=== PATIENT | female | born 1990 | race African-American/Black ===

== ENCOUNTER 2019-04-24 13:13 | Emergency (ER) | payer OTHER ==
[~2019-04-24] VITALS: Ht 175.3 cm; Wt 149.2 kg
[2019-04-24 14:17] LABS: HEMOGLOBIN 10.7 gm/dL (12.0-15.0); MCH 20.3 pg (26.0-34.0); MCHC 30.5 g/dL (28.0-37.0); MCV 66.4 fL (80.0-100.0); PLATELET COUNT 329 thou/uL (150-400); RBC 5.27 mil/uL (4.20-5.00); RDW 20.1 % (10.5-14.5); WBC 9.3 thou/uL (4.0-11.0)
[2019-04-24 14:25] LABS: ANION GAP 9 mmol/L (7-16); BUN 4 mg/dL (7-18); CALCIUM 9.7 mg/dL (8.5-10.1); CHLORIDE 102 mmol/L (98-107); CO2 29 mmol/L (21-32); CREATININE 0.8 mg/dL (0.6-1.0); GLUCOSE 131 mg/dL (74-106); POTASSIUM 3.6 mmol/L (3.5-5.1); SODIUM 140 mmol/L (136-145)
[2019-04-24 14:34] LABS: ALBUMIN 3.8 g/dL (3.4-5.0); SGOT 20 U/L (15-37); SGPT 38 U/L (30-65); TOTAL BILIRUBIN 0.6 mg/dL (<0.1-1.0); TOTAL PROTEIN 8.7 g/dL (6.4-8.2); TROPONIN-I <0.06 ng/mL (<0.06)
[2019-04-24] MEDS ORDERED: AMOXICILLIN875 MG PO (15:01)
[2019-04-24] MEDS ORDERED: PROMETH-CODEIN 65 ML PO (15:01)
[2019-04-24] MEDS ORDERED: ZPAK PO (15:01)
[2019-04-24 15:28] LABS: URINE BILIRUBIN NEGATIVE (Negative); URINE BLOOD NEGATIVE (Negative); URINE CLARITY CLEAR; URINE COLOR YELLOW; URINE GLUCOSE-RANDOM* NEGATIVE (Negative); URINE KETONES NEGATIVE (Negative); URINE LEUKOCYTES-REFLEX NEGATIVE (Negative); URINE NITRITE-REFLEX NEGATIVE (Negative); URINE PROTEIN (DIPSTICK) NEGATIVE (Negative); URINE UROBILINOGEN 0.2 E.U./dl (0.2-1.0)
[2019-04-24 15:33] LABS: AMP/METHAMP Negative (Negative); BARBITURATES Negative (Negative); BENZODIAZEPINES Negative (Negative); COCAINE Negative (Negative); METHADONE Negative (Negative); OPIATES Negative (Negative); PCP Negative (Negative)
[2019-04-24 16:05] LABS: ABSOLUTE NEUTROPHILS 7.2 thou/uL (1.4-8.2); ANISOCYTOSIS 2+
[2019-04-24 16:06] LABS: HYPOCHROMASIA 2+; MICROCYTES 3+
[2019-04-24 16:35] VITALS: BP 133/86
--- NOTE | 2019-04-25 10:29 | EKG ---
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
[2019-04-25] MEDS ORDERED: LABETALOL HCL100 MG PO (22:35)
[2019-04-25] MEDS ORDERED: MONTELUKAST SODI4 M1 PO (22:36)
== END 2019-04-24 16:35 | disposition home or self-care (01) ==
LOC: ER 13:13
PROVIDERS: Emergency Medicine
DX: J20.9 Acute bronchitis, unspecified (principal); D50.9 Iron deficiency anemia, unspecified; J10.1 Influenza due to other identified influenza virus with other respiratory manifestations; R11.10 Vomiting, unspecified; J45.909 Unspecified asthma, uncomplicated; I10 Essential (primary) hypertension; Z88.2 Allergy status to sulfonamides

== ENCOUNTER 2019-04-25 16:47 | Inpatient (IN) | payer OTHER ==
[~2019-04-25] VITALS: Ht 175.3 cm; Wt 149.2 kg
[~2019-04-25 16:47] MED LIST: AMOXICILLIN875 MG PO; PROMETH-CODEIN 65 ML PO; ZPAK PO
[2019-04-25 16:50] VITALS: BP 175/103
[2019-04-25 17:36] LABS: BASOPHILS 0.3 % (0.0-2.0)
[2019-04-25 17:42] LABS: ABSOLUTE NEUTROPHILS 14.4 thou/uL (1.4-8.2); EOSINOPHILS 0.1 % (0.0-3.0); HEMATOCRIT 34.5 % (37.0-47.0); HEMOGLOBIN 10.6 gm/dL (12.0-15.0); LYMPHOCYTES 13.9 % (24.0-44.0); MCH 20.2 pg (26.0-34.0); MCHC 30.7 g/dL (28.0-37.0); MCV 65.8 fL (80.0-100.0); MONOCYTES 4.5 % (1.0-8.0); PLATELET COUNT 396 thou/uL (150-400); POLYS 81.2 % (36.0-66.0); RBC 5.24 mil/uL (4.20-5.00); RDW 20.1 % (10.5-14.5); WBC 17.8 thou/uL (4.0-11.0)
[2019-04-25 17:49] LABS: CALCIUM 9.8 mg/dL (8.5-10.1); CREATININE 0.9 mg/dL (0.6-1.0); POTASSIUM 3.5 mmol/L (3.5-5.1)
[2019-04-25 18:31] VITALS: BP 129/75
[2019-04-25 18:46] LABS: ANISOCYTOSIS 3+; HYPOCHROMASIA 3+; MICROCYTES 3+; OVALOCYTES FEW; TEARDROPS FEW
[2019-04-25 19:52] VITALS: BP 128/71
--- NOTE | 2019-04-25 20:10 | NUR ---
Pt. arrived to the unit from the emergency room accompanied by staff. She was oriented to her room and staff. Pt. requesting something to eat and diet order received from Nicky ROA
[2019-04-25 20:28] VITALS: BP 114/59
[2019-04-25] MEDS ORDERED: LABETALOL HCL100 MG PO (22:35)
[2019-04-25] MEDS ORDERED: MONTELUKAST SODI4 M1 PO (22:36)
--- NOTE | 2019-04-25 22:38 | NUR ---
Admission assessment completed and history was done earlier. Pt. does have a congested cough and head of the bed elevated. No c/o shortness of air.
[2019-04-26 04:42] VITALS: BP 113/73
--- NOTE | 2019-04-26 05:17 | NUR ---
Pt. rested at short intervals during the night when checked on during frequent rounds. Cough med given for cough (see emar) with some relief. No c/o shortness of air.
[2019-04-26 08:36] VITALS: BP 118/64
[2019-04-26 16:30] VITALS: BP 140/69
--- NOTE | 2019-04-26 16:50 | NUR ---
Patient continues on Isolation for Influenza A. Vital signs have been stable. Patient has requested and received Guafenisin Cough Syrup x's 1 during this shift. She continues with IV in right ac with Sodium Chloride 0.9% running at 100cc's per hour as ordered. She has not complained of non-cardiac chest pain thus far during this shift. Appetite and fluid consumption is good. Patient is up ad nic to use the restroom. Will continue to monitor.
[2019-04-26 20:43] VITALS: BP 103/75
[2019-04-26 23:26] LABS: URINE BILIRUBIN NEGATIVE (Negative); URINE BLOOD NEGATIVE (Negative); URINE CLARITY CLEAR; URINE COLOR YELLOW; URINE GLUCOSE-RANDOM* NEGATIVE (Negative); URINE KETONES NEGATIVE (Negative); URINE LEUKOCYTES-REFLEX NEGATIVE (Negative); URINE NITRITE-REFLEX NEGATIVE (Negative); URINE PROTEIN (DIPSTICK) NEGATIVE (Negative); URINE SPECIFIC GRAVITY <= 1.005 (1.005-1.035); URINE UROBILINOGEN 0.2 E.U./dl (0.2-1.0)
--- NOTE | 2019-04-27 02:23 | NUR ---
PATIENT AOX4 MAKES NEEDS KNOWN. PATIENT CALM AND COOPERATIVE WITH CARE AND MEDS. PATIENT HAD AN EPISODE OF SHORTNESS OF AIR, AND WHEEZING, CALLED DIRECTOR LOSS PREVENTION NEW ORDER OF ALBUTEROL Q 2 HOURS. PATIENT DENIED PAIN OR DISCOMFORT. NO SHORTNESS OF AIR OR DISTRESS AT THIS TIME. SCD ON.PATIENT DENIED PAIN OR DISCOMFORT. PATIENT IN BED ASLEEP AT THIS TIME BREATHING REGULAR AND UNLABOURED.
[2019-04-27 07:25] VITALS: BP 131/71
--- NOTE | 2019-04-27 10:17 | NUR ---
Received awake on bed. Due medications given as prescribed, able to swallow meds w/o difficulty. A+Ox4. On room air. With SL at R AC- intact. Up ad nic, independent with ADLs. PRN cough medicine given as prescribed. Maintained on isolation due to Influenza A- on droplet precautions. Pt very keen to go home, informed pt that we have to wait for doctor's rounds, will ask re: discharge. Pt seen by Dr Dooley- advised pt for possible discharge tomorrow. Pt started on blood sugar monitoring, non-diabetic but upon reviewing pt's chart saw that pt is on IV steroids.
--- NOTE | 2019-04-27 13:43 | NUR ---
PT ADMITTED RELATED TO POSITIVE BLOOD CULTURES FLU A, PNA, LACTIC ACIDOSIS. CM REVIEWED CHART AND SPOKE WITH CARE TEAM. CM MET WITH PT AT BEDSIDE THIS DAY. PT IS A&O X4. CM ROLE INTRODUCED. PT INDICATED SHE LIVES IN AN APARTMENT WITH HER SON WITH 5 STEPS TO ENTER AND NO STEPS INSIDE. 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 PT INDICATED SHE IS CURRENTLY PATIENT PAY BUT SHE IS TRYING TO GET MEDICAID. OTTONIEL WAS GOING TO FOLLOW UP WITH PC. CARE TEAM INDICATED THAT PT MAY BE MEDICALLY STABLE TO DC TOMORROW. CM TO FOLLOW INDICATED WITH DC PLANNING.
[2019-04-27 16:41] VITALS: BP 125/60
[2019-04-27 19:01] VITALS: BP 146/82
--- NOTE | 2019-04-28 02:50 | NUR ---
PATIENT AOX4 MAKES NEEDS KNOWN. PATIENT IS UP AT AISHA. NO SHORTNESS OF AIR OR DISTRESS NOTED THIS SHIFT. PATIENT ON DOPLET PRECAUTION FOR INFLENZA A. PAIN CONTROLLED THIS SHIFT. PATIENT HAS SCD ON. PATIENT IN BED ASLEEP AT THIS TIME BREATHING REGULAR AND UNLABOURED.
[2019-04-28 05:54] LABS: HEMATOCRIT 32.7 % (37.0-47.0); HEMOGLOBIN 9.6 gm/dL (12.0-15.0); MCH 19.7 pg (26.0-34.0); MCHC 29.3 g/dL (28.0-37.0); PLATELET COUNT 350 thou/uL (150-400); RBC 4.88 mil/uL (4.20-5.00); RDW 19.7 % (10.5-14.5); WBC 18.3 thou/uL (4.0-11.0)
[2019-04-28 07:00] VITALS: BP 123/79
[2019-04-28 07:00] LABS: ABSOLUTE NEUTROPHILS 16.8 thou/uL (1.4-8.2)
[2019-04-28 07:01] LABS: ANISOCYTOSIS 2+; HYPOCHROMASIA 3+; MICROCYTES 3+; PLATELET ESTIMATE NORMAL; POIKILOCYTOSIS 2+
[2019-04-28] MEDS ORDERED: PREDNISONE 5 MG5 MG PO (12:56)
[2019-04-28] MEDS ORDERED: PROAIR HFA8.5 GM INH (12:56)
[2019-04-28] MEDS ORDERED: ACETAMINOPHEN325 M1 PO (12:56)
[2019-04-28] MEDS ORDERED: GUAIFEN-CODEINE10 ML PO (12:56)
[2019-04-28] MEDS ORDERED: OSELTAMIVIR PHO75 MG PO (12:56)
[2019-04-28 13:30] VITALS: BP 123/79
--- NOTE | 2019-04-28 13:49 | NUR ---
CARE TEAM INDICATED THAT PT IS MEDICALLY STABLE TO DC HOME THIS DAY. PT IS TO DC HOME WITH NO NEEDS. NO OTHER CM INTERVENTION INDICATED. CASE CLOSED.
--- NOTE | 2019-04-28 14:26 | NUR ---
Assumed patient care at 0715. Vital signs are stable. Patient has been compliant with all medications and treatments. She has had no episodes of shortness of breath. Patient took a shower independently. Discharge Instructions signed by patient after she verbalized an understanding of all education. Patient left with all of her belongings at 1410.
== END 2019-04-28 14:53 | disposition home or self-care (01) | DRG 871 ==
LOC: ER 16:47 → EROBS 18:14 → 4W 18:14 → EROBS 18:14 → 4W 19:53 → ENTRNSPT 04-28 14:10 → EDTRNSPTSTS 04-28 14:15 → 4W 04-28 14:53
PROVIDERS: Emergency Medicine; Internal Medicine; ADMIT Hospitalist
DX: A41.9 Sepsis, unspecified organism (principal); J18.9 Pneumonia, unspecified organism; J10.00 Influenza due to other identified influenza virus with unspecified type of pneumonia; J45.901 Unspecified asthma with (acute) exacerbation; J45.909 Unspecified asthma, uncomplicated; I10 Essential (primary) hypertension; E66.01 Morbid (severe) obesity due to excess calories; Z68.42 Body mass index [BMI] 45.0-49.9, adult; Z88.2 Allergy status to sulfonamides; Z83.3 Family history of diabetes mellitus; Z82.61 Family history of arthritis
CPT/HCPCS: 10040

== ENCOUNTER 2019-07-07 07:59 | Emergency (ER) | payer OTHER ==
[~2019-07-07] VITALS: Ht 175.3 cm; Wt 166.5 kg
[~2019-07-07 07:59] MED LIST changes: +ACETAMINOPHEN325 M1 PO; +GUAIFEN-CODEINE10 ML PO; +LABETALOL HCL100 MG PO; +MONTELUKAST SODI4 M1 PO; +OSELTAMIVIR PHO75 MG PO; +PREDNISONE 5 MG5 MG PO; +PROAIR HFA8.5 GM INH
[2019-07-07] MEDS ORDERED: TESSALON PERLE100 MG PO (12:36)
[2019-07-07] MEDS ORDERED: PREDNISONE 20 M20 MG PO (12:36)
[2019-07-07] MEDS ORDERED: GUAIFEN-CODEINE10 ML PO (12:36)
[2019-07-07 12:56] VITALS: BP 126/71
== END 2019-07-07 12:57 | disposition home or self-care (01) ==
LOC: ER 07:59
DX: J45.901 Unspecified asthma with (acute) exacerbation (principal); J06.9 Acute upper respiratory infection, unspecified; J45.909 Unspecified asthma, uncomplicated; I10 Essential (primary) hypertension; Z90.49 Acquired absence of other specified parts of digestive tract; Z98.890 Other specified postprocedural states; Z88.2 Allergy status to sulfonamides; Z86.2 Personal history of diseases of the blood and blood-forming organs and certain disorders involving the immune mechanism

== ENCOUNTER 2019-07-19 00:15 | Inpatient (IN) | payer OTHER ==
[2019-07-19] VITALS (7 sets, daily range): BP systolic 142–171; BP diastolic 58–92
[~2019-07-19] VITALS: Ht 175.3 cm; Wt 169.2 kg
[~2019-07-19 00:15] MED LIST changes: +PREDNISONE 20 M20 MG PO; +TESSALON PERLE100 MG PO
[2019-07-19 01:09] LABS: CREATININE 0.9 mg/dL (0.6-1.0); POTASSIUM 3.9 mmol/L (3.5-5.1)
[2019-07-19 01:17] LABS: ABSOLUTE NEUTROPHILS 8.4 thou/uL (1.4-8.2); BASOPHILS 0.4 % (0.0-2.0); EOSINOPHILS 0.9 % (0.0-3.0); HEMATOCRIT 28.1 % (37.0-47.0); LYMPHOCYTES 20.2 % (24.0-44.0); MCH 17.3 pg (26.0-34.0); MCHC 28.6 g/dL (28.0-37.0); MCV 60.6 fL (80.0-100.0); MONOCYTES 5.1 % (1.0-8.0); PLATELET COUNT 395 thou/uL (150-400); POLYS 73.4 % (36.0-66.0); RBC 4.63 mil/uL (4.20-5.00); RDW 19.7 % (10.5-14.5); WBC 11.5 thou/uL (4.0-11.0)
[2019-07-19 02:58] LABS: ANISOCYTOSIS 2+; HYPOCHROMASIA 3+; MICROCYTES 3+; POLYCHROMASIA 1+
--- NOTE | 2019-07-19 06:46 | NUR ---
Arrived from ER around 0620. IF fluids started , consent signed and placed in isolation for Influenza B. Stated she had nausea earlier while in ER but none since. Med rec done including pharmacy. Tolerating room air well. Will continue to monitor.
--- NOTE | 2019-07-19 11:36 | NUR ---
Received awake on bed. Due medications given as prescribed, able to swallow meds w/o difficulty. On room air. Vital signs stable. A+Ox4. On heart healthy diet- tolerating well; no nausea, no vomiting and no abdominal pain noted. With NS at 100cc/hr, infusing well on L AC. Maintained on isolation due to Influenza B- protocol observed. Up ad nic, independent with ADLs. Still complaining of dry cough and headache- PRN meds given as prescribed. Pt seen by SURGICAL GARMENT INSPECTOR Zita this morning- resumed Montelukast and BP meds- given as prescribed; informed SURGICAL GARMENT INSPECTOR that aside from tylenol, no order pain meds prescribed. Blood draw ordered for tomorrow. To continue monitoring patient.
[2019-07-19 12:05] LABS: % SATURATION 6 % (20-39); IRON 19 ug/dL (50-170); TIBC 298 ug/dL (250-450)
[2019-07-19 12:34] LABS: FOLIC ACID 7.7 ng/mL (8.6-58.9)
--- NOTE | 2019-07-19 16:13 | NUR ---
chart review. pt remains on isolation for + flu B. pt in bed, a & o x 4, pleasant and able to make her needs know. intro to cm and dcp. provided safe net packet, primary dr fernandez. 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 independent with all adl's prior to , no medical equipment needed."/sadee. cm provided safe net packet in case needs refills on medication or to see different dr until insurance is active. not anticipated needs. will cont following as needed for dc needs.
--- NOTE | 2019-07-20 05:22 | NUR ---
Pt. rested quietly at short intervals during the night when checked on during frequent rounds. Pt. did request something else for her cough and spoke to the MANUAL ARTS THERAPY TEACHER and new order for tessalon perles given. Medication given along with guaifenesin (see emar) which was a little helpful. Droplet precautions taken. She did c/o chest pain (non-cardiac) from coughing and prn tylenol given with some releif noted. No c/o shortness of air.
[2019-07-20 06:01] LABS: HEMOGLOBIN 8.3 gm/dL (12.0-15.0); MCH 17.6 pg (26.0-34.0); MCHC 28.7 g/dL (28.0-37.0); MCV 61.3 fL (80.0-100.0); PLATELET COUNT 457 thou/uL (150-400); RBC 4.74 mil/uL (4.20-5.00); RDW 19.9 % (10.5-14.5)
[2019-07-20 06:25] LABS: CALCIUM 9.3 mg/dL (8.5-10.1); CREATININE 0.8 mg/dL (0.6-1.0); MAGNESIUM 2.1 mg/dL (1.8-2.4); POTASSIUM 4.2 mmol/L (3.5-5.1)
[2019-07-20 07:15] VITALS: BP 157/67
[2019-07-20 08:44] LABS: ABSOLUTE NEUTROPHILS 17.3 thou/uL (1.4-8.2); ANISOCYTOSIS 2+; MICROCYTES 3+; PLATELET ESTIMATE INCREASED
[2019-07-20] MEDS ORDERED: PREDNISONE 20 M20 M1 PO (11:58)
[2019-07-20] MEDS ORDERED: OSELTAMIVIR PHO75 MG PO (11:58)
[2019-07-20] MEDS ORDERED: ZPAK PO (11:58)
[2019-07-20 12:38] VITALS: BP 157/67
--- NOTE | 2019-07-20 13:10 | NUR ---
Assumed patient care at 0715. Vital signs have been stable. She has been on Droplet Isolation for Influenza B. Normal Saline has been running at 100cc/hr. Patient requested and recieved Tessalon Perle for cough x's 1; this was effective. Dr Marrero here to see patient, gave Discharge Orders. Patient signed all Discharge and Medication Education Papers after verbalizing an understanding of them. Patient left at 1315 with all belongings and Discharge Instructions.
== END 2019-07-20 13:15 | disposition home or self-care (01) | DRG 189 ==
LOC: ER 00:15 → EROBS 05:26 → 4W 05:26
PROVIDERS: Emergency Medicine; Nurse Practitioner; ADMIT Hospitalist
DX: J96.00 Acute respiratory failure, unspecified whether with hypoxia or hypercapnia (principal); Z68.43 Body mass index [BMI] 50.0-59.9, adult; J45.909 Unspecified asthma, uncomplicated; I10 Essential (primary) hypertension; J10.1 Influenza due to other identified influenza virus with other respiratory manifestations; D64.9 Anemia, unspecified; E66.01 Morbid (severe) obesity due to excess calories; Z90.49 Acquired absence of other specified parts of digestive tract; Z98.891 History of uterine scar from previous surgery; Z79.899 Other long term (current) drug therapy; Z79.51 Long term (current) use of inhaled steroids; Z88.2 Allergy status to sulfonamides; Z87.01 Personal history of pneumonia (recurrent); Z83.3 Family history of diabetes mellitus
CPT/HCPCS: 10040

== ENCOUNTER 2019-10-07 20:59 | Emergency (ER) | payer OTHER ==
[~2019-10-07] VITALS: Ht 175.3 cm; Wt 163.3 kg
--- NOTE | ~2019-10-07 | EMS ---
[place] [id number] EMS Patient Care Report Name: SUZANNA ESCALONA Room #: REG CHING Tubbs#: [id number] Admission: 10/07/19 Attend Phys: Discharge: Date of : [birth year] Report #: [id number] THIS REPORT FOR: //name// Report Transmitted: 10/07/2019 22:18 EMS Care Summary [place], [place]/[facility] Incident [id number] @ 10/07/2019 20:23 Incident Location [address] [place] [address] Patient SUZANNA ESCALONA Female, 29 Years 1990 Patient Address [address] [place] [address] Patient History Asthma,Hypertension (HTN),Anemia,Supraventricular Tachycardia (SVT), Patient Allergies Sulfa,Pollen allergy, Patient Medications Albuterol, Labetalol, Singulair, Iron, Disposition Transported No Lights/[place] Dispatch Reason Headache Transported To [facility] Narrative THE PATIENT WAS FOUND LAYING IN BED AT HOME. THE PATIENT STATES SHE HAS BEEN SICK FOR THE LAST THREE DAYS WITH FEVER, BODY ACHES AND DIZZINESS. THE PATIENT DENIES ANY OTHER COMPLAINTS. THE PATIENT'S SKIN WAS FOUND TO BE SLIGHTLY WARMER THAN NORMAL. NO OTHER ABNORMALITIES WERE NOTED ON EXAM. NO CHANGES IN THE PATIENT'S CONDITION DURING TRANSPORT. THE PATIENT WAS MOVED TO [address]ED [address] [place] [address] EMS Patient Care Report Name: SUZANNA ESCALONA Room #: REG [facility].R.#: [id number] Admission: 10/07/19 Attend Phys: Discharge: Date of : [birth year] Report #: [id number] [facility] ER AND LEFT WITH THE SIDE RAILS UP AND LOCKED. CARE WAS TRANSFERRED TO THE ER NURSING STAFF. Initial Vitals @20:53P: 110,R: 16,BP: 134/84,Pain: 6/10,GCS: 15,CO: 8,SpO2: 100,Revised Trauma: 12, @20:39P: 118,R: 16,BP: 140/71,Pain: 6/10,GCS: 15,CO: 1,SpO2: 96,Revised Trauma: 12, Assessments @20:30MENTAL:No Abnormalities,SKIN:No Abnormalities,HEENT:Head/Face: No Abnormalities,Eyes: No Abnormalities,Neck/Airway: No Abnormalities,LUNG SOUNDS:General: No Abnormalities,Left Upper: No Abnormalities,Right Upper: No Abnormalities,Left Lower: No Abnormalities,Right Lower: No Abnormalities,ABDOMEN:General: No Abnormalities,Left Upper: No Abnormalities,Right Upper: No Abnormalities,Left Lower: No Abnormalities,Right Lower: No Abnormalities,PELVIS//GI:No Abnormalities,EXTREMITIES:Left Arm: No Abnormalities,Right Arm: No Abnormalities,Left Leg: No Abnormalities,Right Leg: No Abnormalities,PULSE:Radial: 2+ Normal,NEURO:No Abnormalities, Impression Fever Procedures @20:30ALS AssessmentResponse: Unchanged Timeline 20:21,Call Received 20:21,Dispatch Notified 20:23,Dispatched 20:23,En Route 20:28,On Scene 20:30,At Patient 20:30,ALS Assessment,Response: Unchanged 20:39,BP: 140/71 M,PULSE: 118,RR: 16 R,SPO2: 96 Ox,ETCO2: ,BG: ,PAIN: 6,GCS: 15, 20:41,Depart Scene 20:52,At Destination 20:53,BP: 134/84 M,PULSE: 110,RR: 16 R,SPO2: 100 Ox,ETCO2: ,BG: ,PAIN: 6,GCS: 15, 21:12,Call Closed Disclaimer v1.1 Copyright 2020 [employer] This EMS Care Summary contains data elements from the applicable legal record (which may be displayed differently). It is designed to provide pertinent [address] [address] EMS Patient Care Report Name: SUZANNA ESCALONA Room #: REG CHING Tubbs#: [id number] Admission: 10/07/19 Attend Phys: Discharge: Date of : [birth year] Report #: [id number] information for the following purposes: continuity of care, clinical quality, and state data reporting. The complete legal record is available to ED staff and administrators of the receiving hospital in [employer] Patient Tracker. All data is provided "as is."
[~2019-10-07 20:59] MED LIST changes: +PREDNISONE 20 M20 M1 PO
[2019-10-07 22:01] LABS: HEMATOCRIT 26.1 % (37.0-47.0); HEMOGLOBIN 7.7 gm/dL (12.0-15.0); MCH 16.3 pg (26.0-34.0); MCHC 29.6 g/dL (28.0-37.0); MCV 55.1 fL (80.0-100.0); PLATELET COUNT 298 thou/uL (150-400); RBC 4.74 mil/uL (4.20-5.00); RDW 20.9 % (10.5-14.5); WBC 4.7 thou/uL (4.0-11.0)
[2019-10-07 22:04] LABS: URINE BILIRUBIN NEGATIVE (Negative); URINE BLOOD 3+ (Negative); URINE CLARITY CLEAR; URINE COLOR YELLOW; URINE GLUCOSE-RANDOM* NEGATIVE (Negative); URINE KETONES NEGATIVE (Negative); URINE LEUKOCYTES-REFLEX NEGATIVE (Negative); URINE NITRITE-REFLEX NEGATIVE (Negative); URINE PROTEIN (DIPSTICK) NEGATIVE (Negative)
[2019-10-07 22:10] LABS: ANION GAP 6 mmol/L (7-16); BUN 6 mg/dL (7-18); CALCIUM 8.5 mg/dL (8.5-10.1); CHLORIDE 101 mmol/L (98-107); CO2 29 mmol/L (21-32); CREATININE 0.9 mg/dL (0.6-1.0); GLUCOSE 112 mg/dL (74-106); POTASSIUM 3.4 mmol/L (3.5-5.1); SODIUM 136 mmol/L (136-145)
[2019-10-07 22:14] LABS: BACTERIA-REFLEX 1-9 Few /HPF (None Seen); CASTS None Seen /LPF (None Seen); CRYSTALS None Seen /LPF (None Seen); SQUAMOUS 0-3 Few /LPF (0-3); URINE RBC 3-10 Few /HPF (0-2); URINE WBC-REFLEX None Seen /HPF (0-5)
[2019-10-07 22:14] LABS: ALBUMIN 3.4 g/dL (3.4-5.0); DIRECT BILIRUBIN < 0.1 mg/dL (<0.1-0.2); SGOT 28 U/L (15-37); SGPT 26 U/L (30-65); TOTAL BILIRUBIN 0.8 mg/dL (0.2-1.0); TOTAL PROTEIN 7.6 g/dL (6.4-8.2)
[2019-10-07 22:23] LABS: ABSOLUTE NEUTROPHILS 3.5 thou/uL (1.4-8.2); ANISOCYTOSIS 2+; MICROCYTES 3+; NUCLEATED RBCS 1 /100WBC; POLYCHROMASIA SLIGHT
[2019-10-07 22:24] LABS: HYPOCHROMASIA 2+
[2019-10-08 00:35] VITALS: BP 127/73
== END 2019-10-08 01:07 | disposition home or self-care (01) ==
LOC: ER 20:59
PROVIDERS: Emergency Medicine
DX: B34.9 Viral infection, unspecified (principal); D64.9 Anemia, unspecified; J45.909 Unspecified asthma, uncomplicated; I10 Essential (primary) hypertension; Z03.818 Encounter for observation for suspected exposure to other biological agents ruled out; Z90.49 Acquired absence of other specified parts of digestive tract; Z88.2 Allergy status to sulfonamides; Z79.899 Other long term (current) drug therapy

== ENCOUNTER 2019-10-13 19:57 | Inpatient (IN) | payer OTHER ==
[~2019-10-13] VITALS: Ht 175.3 cm; Wt 161.0 kg
[2019-10-13 19:58] VITALS: BP 139/62
[2019-10-13 20:31] LABS: HEMATOCRIT 26.7 % (37.0-47.0); MCH 16.6 pg (26.0-34.0); MCHC 30.1 g/dL (28.0-37.0); MCV 55.2 fL (80.0-100.0); PLATELET COUNT 299 thou/uL (150-400); RBC 4.83 mil/uL (4.20-5.00); RDW 21.3 % (10.5-14.5); WBC 5.6 thou/uL (4.0-11.0)
[2019-10-13 20:39] LABS: CALCIUM 8.3 mg/dL (8.5-10.1); CREATININE 1.1 mg/dL (0.6-1.0); POTASSIUM 3.3 mmol/L (3.5-5.1)
[2019-10-13 20:50] LABS: URINE BILIRUBIN 1+ (Negative); URINE BLOOD NEGATIVE (Negative); URINE CLARITY SL CLOUDY; URINE COLOR YELLOW; URINE GLUCOSE-RANDOM* NEGATIVE (Negative); URINE KETONES TRACE (Negative); URINE LEUKOCYTES-REFLEX NEGATIVE (Negative); URINE NITRITE-REFLEX NEGATIVE (Negative); URINE PROTEIN (DIPSTICK) 1+ (Negative); URINE SPECIFIC GRAVITY >= 1.030 (1.005-1.035)
[2019-10-13 20:56] LABS: BACTERIA-REFLEX 1-9 Few /HPF (None Seen); CASTS None Seen /LPF (None Seen); CRYSTALS None Seen /LPF (None Seen); MUCUS 0-3 Light strn/LPF (None Seen); SQUAMOUS >10 Many /LPF (0-3); URINE RBC 0-2 Rare /HPF (0-2); URINE WBC-REFLEX 0-5 Rare /HPF (0-5)
[2019-10-13 21:20] LABS: ABSOLUTE NEUTROPHILS 3.6 thou/uL (1.4-8.2); ANISOCYTOSIS 2+; NUCLEATED RBCS 1 /100WBC
[2019-10-13 21:21] LABS: HYPOCHROMASIA 2+; LARGE PLATELETS OCCASIONAL; MICROCYTES 3+
[2019-10-14 00:38] VITALS: BP 120/77
--- NOTE | 2019-10-14 01:16 | NUR ---
PT CAME FROM HOME TO ED. PT REPORTS TEMPERATURE, WEAKNESS AND LETHARGY SINCE . PT STATED SHE WAS IN OUR ED AT THAT TIME AND TESTED POSITIVE FOR FLU A AND B. PT STATES SHE HAS HAD FLU AND PNEUMONIA BEFORE. PT DENIED FLU VACCINE BUT HAS HAD PNEUMONIA VACCINE. PT DENIES COUGH. PT REPORTS FLUCTUATING APPETITE. LIVES AT HOME WITH HER SON. PTS BROTHER BROUGHT PT TO ED. PTS MOTHER HAS A AUTO IMMUNE DISEASE, PER PT. INDEPENDENT AMBULATION, VERBALIZED TO CALL FOR ASSISTANCE. IVF INTACT. LUNGS DIMINISHED, HR DISTANT, OBESE. PT TESTED FOR COVID IN ED. PROVIDER TALKING WITH PT. PT REQUESTED MEAL TRAY AND PROVIDED.
[2019-10-14 04:49] VITALS: BP 123/71
[2019-10-14 06:00] LABS: RBC 4.09 mil/uL (4.20-5.00)
[2019-10-14 06:04] LABS: HEMATOCRIT 22.9 % (37.0-47.0); HEMOGLOBIN 6.8 gm/dL (12.0-15.0); MCH 16.6 pg (26.0-34.0); MCHC 29.6 g/dL (28.0-37.0); MCV 56.1 fL (80.0-100.0); RDW 20.7 % (10.5-14.5); WBC 3.5 thou/uL (4.0-11.0)
[2019-10-14 06:13] LABS: CALCIUM 7.9 mg/dL (8.5-10.1); CREATININE 0.9 mg/dL (0.6-1.0); POTASSIUM 3.2 mmol/L (3.5-5.1)
[2019-10-14 09:05] VITALS: BP 129/75
--- NOTE | 2019-10-14 09:36 | NUR ---
Assess due to BMI 52.4, extreme class III obesity. Admit with +flu A/B and pneumonia with fever. Appetite down and wt down about 5 lb over past week. On regular diet and on Special Precautions tray, COVID testing. Follow for improvement in oral intake, otherwise low nutrition risk and available if pt voices interest in wt loss education.
[2019-10-14 11:20] VITALS: BP 128/64
--- NOTE | 2019-10-14 11:55 | NUR ---
NOTED OT HAVE A TEMP OF [address] NOTIFIED. PRN TYLENOL ADMINISTERED. WILL MONITOR FEVERS.
--- NOTE | 2019-10-14 13:03 | NUR ---
INITIAL ASSESSMENT: Received consult. VALERIE reviewed chart and spoke with nursing and attending physician. Pt was admitted from home due to fevers. Pt is in Enhanced Isolation to r/o COVID-19. Test is pending. Pt with recent pneumonia and Influenza A&B. VALERIE spoke with pt via phone. Introduced role of SW. Pt appears to be alert/orientated x 4. Pt reports she lives at home with her family. Prior to admission, pt was independent with ADLs. No use of DME or prior HH services or post-acute placement. Pt's PCP is Dr. Fagan. Pt states she has insurance (Aetna) through her employer, [employer]. Pt states she does not have an insurance card. SW notified Jocelyn in patient access to check Aetna. Per Jocelyn's pt's Aetna policy is not active. [employer] will screen pt to see if she is eligible for assistance. Plan is for pt to discharge home when medically stable. VALERIE is following to assist as needed with discharge planning.
[2019-10-14 19:34] VITALS: BP 142/77
--- NOTE | 2019-10-14 22:57 | NUR ---
1915 assumed care of pt after report. 2014 BASELINE ASSESSMENT COMPLETED, PT RESTING IN BED WITH NO COMPLAINTS OF PAIN OR DISCOMFORT OR SOA, LUNGS DIM AT BASES BILATERALLY, SKIN WARM AND DRY, PULSES PALPABLE RADIAL AND DORSALIS PEDIS 2+, PT SINUS TACH ON YEAST STACKER, SO S/SX OF DISTRESS AT THIS TIME WILL CONTINUE TO MONITOR 2200 DR KEENE IN ROOM TO SEE PT, PT UP TO RESTROOM TO CLEAN UP, WILL CONTINUE TO MONITOR, TEMP DOWN TO 102 ORAL
[2019-10-15] VITALS (7 sets, daily range): BP systolic 104–144; BP diastolic 50–77
[2019-10-15 07:19] LABS: % SATURATION 7 % (20-39); IRON 19 ug/dL (50-170); TIBC 258 ug/dL (250-450)
[2019-10-15 07:24] LABS: ALBUMIN 2.9 g/dL (3.4-5.0); CALCIUM 7.8 mg/dL (8.5-10.1); CREATININE 0.9 mg/dL (0.6-1.0); TOTAL BILIRUBIN 0.8 mg/dL (0.2-1.0); TOTAL PROTEIN 6.5 g/dL (6.4-8.2)
--- NOTE | 2019-10-15 18:38 | NUR ---
PATIENT NOW SLEEPING. SHE IS UP AD AISHA. PLEASANT WITH CARE. RESPIRATIONS ARE EVEN NON LABORED. DOES NOT SEEM TO BE IN PAIN. NORMA FEVERS TODAY. PER ID SHE MAY BE DISCHARGED HOME TODAY. STATES HER APPETITE IS BACK AND SHE IS EATING WELL. WILL CONT WITH PLAN OF CARE.
--- NOTE | 2019-10-16 00:28 | NUR ---
PT PROGRESSING SLOWLY TOWARDS D/C GOALS. VSS. STILL RUNNING TEMPS. LAST ONE AFEBRILE. TYLENOL GIVEN FOR C/O BACK PAIN WITH COMPLETE RELIEF OBTAINED. LUNGS SOUND CLEAR BUT DIMINISHED. NO S/S DISTRESS MOTED. STOOL SAMPLE SENT TO LAB.
[2019-10-16 05:01] VITALS: BP 121/67
[2019-10-16 08:00] VITALS: BP 110/60
[2019-10-16 08:09] LABS: HIV ANTIBODY Non Reactive (Non Reactive)
--- NOTE | 2019-10-16 08:36 | NUR ---
NO CHANGES IN ASSESMENT. VSS LOW GRADE TEMP. NO S/S RESP DISTRESS TONIGHT.
[2019-10-16] MEDS ORDERED: CEFUROXIME500 MG PO (12:57)
[2019-10-16 13:12] VITALS: BP 110/60
--- NOTE | 2019-10-16 13:18 | NUR ---
Assumed pt car at 7am.Pt in bed very anxious to dc home today after being negative for covid 19 x2.Assessment cvompleted. vss but temp was 100.8 Dr Feng notified.Dc order noted.Tylenol given. Pt to dc home later this afternoon.Dc summary compile and reviewed with pt.Rx faxed to [facility] by Dr Feng.Will continue to monitor.
[2019-10-16 17:08] LABS: ANTI-VCA/IgM <36.0 U/mL (0.0-35.9)
[2019-10-17 00:07] LABS: HEMATOLOGY COMMENTS Note: (()); HEMOGLOBIN 6.2 g/dL (11.1-15.9)
== END 2019-10-16 13:56 | disposition home or self-care (01) | DRG 864 ==
LOC: ER 19:57 → 3W 23:07 → EROBS 23:07 → 3W 10-14 00:05
PROVIDERS: Nurse Practitioner Family; Specialist; Student in an Organized Health Care Education/Training Program; ADMIT Hospitalist
DX: R50.9 Fever, unspecified (principal); E87.1 Hypo-osmolality and hyponatremia; Z68.43 Body mass index [BMI] 50.0-59.9, adult; B34.9 Viral infection, unspecified; J45.909 Unspecified asthma, uncomplicated; I10 Essential (primary) hypertension; E87.6 Hypokalemia; D50.9 Iron deficiency anemia, unspecified; E66.01 Morbid (severe) obesity due to excess calories; Z20.818 Contact with and (suspected) exposure to other bacterial communicable diseases; Z87.01 Personal history of pneumonia (recurrent); Z90.49 Acquired absence of other specified parts of digestive tract; Z79.899 Other long term (current) drug therapy; Z88.2 Allergy status to sulfonamides
CPT/HCPCS: 10879

== ENCOUNTER 2019-10-22 18:59 | Inpatient (IN) | payer OTHER ==
[~2019-10-22] VITALS: Ht 175.3 cm; Wt 157.4 kg
[~2019-10-22 18:59] MED LIST changes: +CEFUROXIME500 MG PO
[2019-10-22 19:34] VITALS: BP 145/96
[2019-10-22] MEDS ORDERED: ZYRTEC10 M5 PO (19:58)
[2019-10-22 20:17] LABS: HEMATOCRIT 30.6 % (37.0-47.0); HEMOGLOBIN 8.8 gm/dL (12.0-15.0); MCH 16.6 pg (26.0-34.0); MCHC 28.8 g/dL (28.0-37.0); MCV 57.6 fL (80.0-100.0); RBC 5.31 mil/uL (4.20-5.00); RDW 24.4 % (10.5-14.5)
[2019-10-22 20:19] LABS: URINE BLOOD NEGATIVE (Negative); URINE CLARITY SL CLOUDY; URINE COLOR YELLOW; URINE GLUCOSE-RANDOM* NEGATIVE (Negative); URINE KETONES NEGATIVE (Negative); URINE LEUKOCYTES-REFLEX NEGATIVE (Negative); URINE NITRITE-REFLEX NEGATIVE (Negative); URINE PROTEIN (DIPSTICK) 1+ (Negative); URINE SPECIFIC GRAVITY 1.025 (1.005-1.035)
[2019-10-22 20:20] LABS: URINE BILIRUBIN NEGATIVE (Negative)
[2019-10-22 20:25] LABS: CALCIUM 9.1 mg/dL (8.5-10.1); CREATININE 0.9 mg/dL (0.6-1.0); POTASSIUM 3.6 mmol/L (3.5-5.1)
[2019-10-22 20:31] LABS: ALBUMIN 3.2 g/dL (3.4-5.0); TOTAL BILIRUBIN 1.3 mg/dL (0.2-1.0); TOTAL PROTEIN 7.8 g/dL (6.4-8.2)
[2019-10-22 20:37] LABS: AMORPHOUS URATES Moderate /LPF (None Seen)
[2019-10-22 20:38] LABS: BACTERIA-REFLEX 1-9 Few /HPF (None Seen); CASTS None Seen /LPF (None Seen); SQUAMOUS 4-10 Moderate /LPF (0-3); URINE RBC None Seen /HPF (0-2); URINE WBC-REFLEX None Seen /HPF (0-5)
[2019-10-22 21:33] VITALS: BP 127/54
[2019-10-22 21:51] LABS: MAGNESIUM 2.2 mg/dL (1.8-2.4)
--- NOTE | 2019-10-22 21:58 | NUR ---
ATTEMPTED TO CALL REPORT. NO ANSWER ON UNIT
[2019-10-22 22:06] VITALS: BP 119/48
[2019-10-22 22:43] VITALS: BP 151/100
--- NOTE | 2019-10-22 23:11 | NUR ---
PT ADMITTED FROM HOME THROUGH ED. PT LIVES WITH HER 7 YR OLD SON AND BROTHER, FREQUENT CONTACT WITH HER MOTHER. PT RECENTLY ON 3W APPROXIMATELY A WEEK AGO POSITIVE FLU A AND B AND WEAKNESS AND TEMPERATURE. PT NOW HAVING INTRACTABLE NAUSEA AND VOMITTING, REPORTS ORANGE JUICE AND HAMBURGER MADE HER THROW UP. BUT THAT CRANBERRY JUICE AND EGG DROP SOUP AND TEA SHE CAN KEEP IN HER STOMACH. PT NOT SOA WITH TALKING OR REPOSITIONING. LUNGS DIMINISHED. TELE ST. PT IS OBESE. PT REQUESTED TEA AND TAJIK ICE AND SPRITE, PROVIDED AND PT TOLERATING. IVF INTACT. PT AMBULATING STEADY AND INDEPENDENTLY. PT DENIES FEELING WEAKNESS, VERBALIZED CALLING FOR ASSISTANCE. PT IN ISOLATION FOR COVID R/O. PT IS COUGHING UP CLEAR STRINGY SPUTUM SMALL AMOUNT, PT STATES SHE FEELS IT IS COMING FROM THE L SIDE OF HER THROAT.
[2019-10-23 05:08] VITALS: BP 124/71
[2019-10-23 05:45] LABS: HEMATOCRIT 26.6 % (37.0-47.0); HEMOGLOBIN 7.9 gm/dL (12.0-15.0); MCH 17.4 pg (26.0-34.0); MCHC 29.6 g/dL (28.0-37.0); MCV 58.8 fL (80.0-100.0); RBC 4.52 mil/uL (4.20-5.00); RDW 24.2 % (10.5-14.5); WBC 4.1 thou/uL (4.0-11.0)
[2019-10-23 05:52] LABS: PLATELET COUNT 210 thou/uL (150-400)
[2019-10-23 05:55] LABS: CALCIUM 8.2 mg/dL (8.5-10.1); CREATININE 0.8 mg/dL (0.6-1.0); MAGNESIUM 2.1 mg/dL (1.8-2.4); POTASSIUM 3.4 mmol/L (3.5-5.1)
[2019-10-23 07:32] LABS: ABSOLUTE NEUTROPHILS 1.7 thou/uL (1.4-8.2); ANISOCYTOSIS 1+; ATYPICAL LYMPHS 1 %; HYPOCHROMASIA 3+; MICROCYTES 3+; NUCLEATED RBCS 1 /100WBC; PLATELET ESTIMATE NORMAL
[2019-10-23 08:00] VITALS: BP 143/68
--- NOTE | 2019-10-23 13:34 | NUR ---
ASSUMED CARE OF THE PT AT 0700. PT IS AMBULATORY. PT C/O N/V, MEDS GIVEN, SEE EMAR. PT REQUESTED TO HAVE BREATHING TX PRN INSTEAD OF SCHEDULED, DOCTOR AWARE. NORMAL SINUS RHYTHM, PULSES STRONG, LUNGS CLEAR. PT REFUSED SCD'S. TOLERATED CLEAR LIQUIS WELL AFTER NAUSEA MEDS GIVEN. L AC IV DRY AND INTACT. BD IN LOWEST POSITION, CALL LIGHT IS WITHIN REACH, PT STILL ON ISOLATION/ COVID RESULTS ARE NEG. WILL CONTINUE TO MONIOR THE PT.
[2019-10-23 19:46] VITALS: BP 145/80
[2019-10-24 04:25] VITALS: BP 124/71
[2019-10-24 05:02] LABS: % SATURATION 8 % (20-39); IRON 17 ug/dL (50-170); TIBC 206 ug/dL (250-450)
--- NOTE | 2019-10-24 05:04 | NUR ---
ASSUMED CARE AT 1900, ASSESSMENT COMPLETED. PT DENIES NAUSEA/VOMITING, SOB, OR PAIN. REPORTS NAUSEA IMPROVED AFTER COUGH SYRUP-STATED THAT MUCOUS IN HER THROAT THAT SHE COULDN'T CLEAR WAS THE REASON FOR BEING NAUSEATED; SHE ALSO REFUSED PEPCID, SAYING THAT IT HAD MADE HER NAUSEATED IN THE AM. ASKED FOR DIET TO BE ADVANCED SHE FELT HUNGRY; OBTAINED ORDER TO ADVANCE TO HEART HEALTHY DIET; PT TOLERATED WELL. NO PAIN OR SOB. NO OTHER CONCERNS, WILL CONTINUE TO MONITOR.
--- NOTE | 2019-10-24 06:01 | HC ---
[facility] [place] [address] CONSULTATION Name: SUZANNA ESCALONA Room #: 358-P ADM IN M.R.#: [id number] Admission: 10/22/19 Attend Phys: Yumi Marrero MD Discharge: Date of : [birth year] Report #: [id number] THIS REPORT FOR: cc: Dex Fagan,Delio Roberts MD ~ CC: Yumi Fagan DATE OF SERVICE: 10/23/2019 INFECTIOUS DISEASE CONSULTATION ATTENDING PHYSICIAN: Dr. Marrero. REASON FOR EVALUATION: Intractable nausea and vomiting with diarrhea. The patient was recently hospitalized with febrile illness, felt to be a viral etiology. She had returned due to ongoing signs and symptoms. It is notable that she has got a past history of SVT, morbid obesity, asthma as well. Evaluation was somewhat unrevealing. Previously had COVID-19 testing, which was negative as well as blood cultures. She improved over the course of the hospitalization. She was empirically treated at that point with ceftriaxone and doxycycline. On review of the labs, she did have a positive CMV IgM returned subsequent to her discharge. Overall, she generally feels somewhat better, does have intermittent issues with nausea. Denies any abdominal pain at this point. She is little febrile to 102.1 overnight, is afebrile this morning. She is not encephalopathic. Denies any pulmonary related complaints. She was started empirically on cefuroxime. ALLERGIES: LISTED TO SULFA. MEDICATIONS: Include p.r.n. analgesics, antiemetics, albuterol, famotidine, loratadine, labetalol, montelukast. PAST MEDICAL HISTORY: As described above, history of SVT, anemia, asthma, hypertension, previous cholecystectomy, , anxiety. SOCIAL HISTORY: Nonsmoker, occasional ethanol, no illicit drug use. FAMILY HISTORY: Noncontributory. REVIEW OF SYSTEMS: Otherwise, unremarkable 10-point review of systems. PHYSICAL EXAMINATION: GENERAL: She is pleasant, alert, cooperative, appropriate, in mild distress. She is obese, appears reasonably well nourished. [facility] [address] [place] [address] CONSULTATION Name: SUZANNA ESCALONA Room #: 358-P [facility] IN M.R.#: [id number] Admission: 10/22/19 Attend Phys: Yumi Marrero MD Discharge: Date of : 89 Report #: [id number] VITAL SIGNS: Temperature 98.8, T-max overnight 102.1 with concomitant elevation in her pulse, respirations 18, pulse is 87, BP 142/68. SKIN: Warm, dry, no rashes. HEENT: Normocephalic. Extraocular muscles intact. NECK: Supple. LUNGS: Generally clear to auscultation. HEART: Regular. I do not appreciate a murmur. ABDOMEN: Obese, soft, nontender. EXTREMITIES: No cyanosis. GENITOURINARY AND RECTAL: Deferred. LABORATORY DATA: Blood cultures collected on the are sterile thus far. CBC: White count of 4.1, H and H 7.9 and 26.6, MCV of 58.8, platelets of 210, 1% bands, 47% lymphocytes, reports 10% monocytes with 1% atypical lymphs. Electrolytes: Sodium 135, potassium 3.4, chloride 102, bicarbonate is 29, anion gap of 4, BUN and creatinine 8 and 0.8, glucose of 82. Estimated GFR of 4.04. Ferritin 182. CRP of 13.3. Lactic acid 1.5. Chest x-ray, no acute processes. Urinalysis, 1+ protein, no white cells. Liver functions remarkable for slightly elevated AST of 50. Lipase of 75. Total bilirubin 1.3, albumin of 3.2, total protein 7.8. ECG qualitative was negative. Peripheral smear from before showed reactive lymphocytes, occasional atypical. No blasts seen and again previously noted positive CMV IgM antibody of 62.2, range is 0-29.9. HIV was nonreactive. 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 IgG antibody, early antigen was elevated at 329 as well, although the IgM was negative. ASSESSMENT AND PLAN: Febrile illness with nausea, emesis, atypical lymphocytes. I think the diagnosis of CMV primary episode seems likely. We will repeat the testing including try to obtain a PCR. ____, she was likely dehydrated when she came in given the nausea, emesis seem to be improved with hydration and symptomatic care, the other thing is perhaps being evaluated for possible hemoglobinopathy, may well have thalassemia given the extremely low MCV of 58. Consider hematology evaluation. At this point, we would hold off any empiric antibacterial therapy. She has no evidence of localized pyogenic infection at this point. <ELECTRONICALLY SIGNED> By: Delio Ortez MD 10/24/19 0601 [id number] Delio Ortez MD /nt
[2019-10-24 07:58] VITALS: BP 135/72
[2019-10-24] MEDS ORDERED: HYDROCODONE-CH115 ML PO (09:45)
[2019-10-24 09:59] VITALS: BP 135/72
--- NOTE | 2019-10-24 12:22 | NUR ---
ASSUMED PATIENT CARE AT 0700. A/O X7. AMBULATED IN ROOM. VSS. PROGRESSING TOWARDS POC GOALS. DC TO HOME.
== END 2019-10-24 12:00 | disposition home or self-care (01) | DRG 866 ==
LOC: ER 18:59 → EROBS 21:32 → 3W 22:10
PROVIDERS: Hospitalist; Nurse Practitioner Family; Specialist; Student in an Organized Health Care Education/Training Program; ADMIT Hospitalist; ATTEND Hospitalist
DX: B27.10 Cytomegaloviral mononucleosis without complications (principal); Z68.43 Body mass index [BMI] 50.0-59.9, adult; J45.909 Unspecified asthma, uncomplicated; I10 Essential (primary) hypertension; F41.9 Anxiety disorder, unspecified; E66.01 Morbid (severe) obesity due to excess calories; Z20.828 Contact with and (suspected) exposure to other viral communicable diseases; D50.9 Iron deficiency anemia, unspecified; Z79.899 Other long term (current) drug therapy; Z90.49 Acquired absence of other specified parts of digestive tract; Z88.2 Allergy status to sulfonamides
CPT/HCPCS: 10879

== ENCOUNTER 2020-10-06 19:10 | Emergency (ER) | payer OTHER ==
[~2020-10-06] VITALS: Ht 172.7 cm; Wt 158.8 kg
[~2020-10-06 19:10] MED LIST changes: +HYDROCODONE-CH115 ML PO; +ZYRTEC10 M5 PO
[2020-10-06 19:13] VITALS: BP 135/89
[2020-10-06] MEDS ORDERED: IRON236 MG PO (19:19)
[2020-10-06] MEDS ORDERED: PREDNISONE 20 M20 MG PO (20:32)
[2020-10-06] MEDS ORDERED: AZITHROMYCIN500 MG PO (20:32)
== END 2020-10-06 20:43 | disposition home or self-care (01) ==
LOC: ER 19:10
DX: J20.9 Acute bronchitis, unspecified (principal); J45.901 Unspecified asthma with (acute) exacerbation; I10 Essential (primary) hypertension; Z88.2 Allergy status to sulfonamides; Z79.899 Other long term (current) drug therapy; Z90.49 Acquired absence of other specified parts of digestive tract

== ENCOUNTER 2020-12-18 04:28 | Emergency (ER) | payer OTHER ==
[~2020-12-18] VITALS: Ht 175.3 cm; Wt 149.7 kg
[~2020-12-18 04:28] MED LIST changes: +AZITHROMYCIN500 MG PO; +IRON236 MG PO
[2020-12-18 05:40] LABS: BASOPHILS 0.4 % (0.0-2.0); EOSINOPHILS 1.7 % (0.0-3.0); HEMATOCRIT 27.4 % (37.0-47.0); HEMOGLOBIN 8.2 gm/dL (12.0-15.0); LYMPHOCYTES 31.1 % (24.0-44.0); MCH 18.3 pg (26.0-34.0); MCV 61.1 fL (80.0-100.0); MONOCYTES 4.8 % (1.0-8.0); PLATELET COUNT 318 thou/uL (150-400); RBC 4.49 mil/uL (4.20-5.00); RDW 20.8 % (10.5-14.5)
[2020-12-18 06:23] VITALS: BP 138/70
[2020-12-18 13:05] LABS: ANISOCYTOSIS 1+; HYPOCHROMASIA 1+; MICROCYTES 1+
== END 2020-12-18 06:29 | disposition home or self-care (01) ==
LOC: ER 04:28
PROVIDERS: Emergency Medicine
DX: O03.9 Complete or unspecified spontaneous abortion without complication (principal); J45.909 Unspecified asthma, uncomplicated; I10 Essential (primary) hypertension; Z90.49 Acquired absence of other specified parts of digestive tract; Z79.899 Other long term (current) drug therapy; Z88.2 Allergy status to sulfonamides

== ENCOUNTER 2021-02-13 09:59 | Emergency (ER) | payer OTHER ==
[~2021-02-13] VITALS: Ht 175.3 cm; Wt 158.8 kg
[2021-02-13 10:55] LABS: HEMATOCRIT 28.2 % (37.0-47.0); MCHC 28.5 g/dL (28.0-37.0); MCV 56.2 fL (80.0-100.0); RBC 5.03 mil/uL (4.20-5.00); RDW 19.8 % (10.5-14.5); WBC 6.3 thou/uL (4.0-11.0)
[2021-02-13 10:57] LABS: CALCIUM 8.9 mg/dL (8.5-10.1); CREATININE 0.8 mg/dL (0.6-1.0); POTASSIUM 3.6 mmol/L (3.5-5.1)
[2021-02-13 11:03] LABS: ALBUMIN 3.6 g/dL (3.4-5.0); TOTAL BILIRUBIN 0.5 mg/dL (0.2-1.0)
[2021-02-13] MEDS ORDERED: ALBUTEROL2.5 MG/31 INH (12:22)
[2021-02-13] MEDS ORDERED: PREDNISONE 20 M20 MG PO (12:22)
[2021-02-13] MEDS ORDERED: ZPAK PO (12:22)
[2021-02-13 12:25] VITALS: BP 153/87
== END 2021-02-13 12:25 | disposition home or self-care (01) ==
LOC: ER 09:59
PROVIDERS: Student in an Organized Health Care Education/Training Program
DX: J45.901 Unspecified asthma with (acute) exacerbation (principal); Z20.822 Contact with and (suspected) exposure to COVID-19; J06.9 Acute upper respiratory infection, unspecified; I10 Essential (primary) hypertension; Z90.49 Acquired absence of other specified parts of digestive tract; Z98.890 Other specified postprocedural states; Z79.51 Long term (current) use of inhaled steroids; Z79.899 Other long term (current) drug therapy; Z88.2 Allergy status to sulfonamides

== ENCOUNTER 2021-04-08 20:44 | Emergency (ER) | payer OTHER ==
[~2021-04-08] VITALS: Ht 175.3 cm; Wt 162.4 kg
[~2021-04-08 20:44] MED LIST changes: +ALBUTEROL2.5 MG/31 INH
[2021-04-08 21:07] LABS: ABSOLUTE NEUTROPHILS 7.7 thou/uL (1.4-8.2); BASOPHILS 0.7 % (0.0-2.0); EOSINOPHILS 1.2 % (0.0-3.0); HEMATOCRIT 28.7 % (37.0-47.0); HEMOGLOBIN 8.1 gm/dL (12.0-15.0); MCH 14.8 pg (26.0-34.0); MCHC 28.1 g/dL (28.0-37.0); MCV 52.6 fL (80.0-100.0); MONOCYTES 6.4 % (1.0-8.0); PLATELET COUNT 360 thou/uL (150-400); POLYS 61.7 % (36.0-66.0); RBC 5.46 mil/uL (4.20-5.00); RDW 21.1 % (10.5-14.5); WBC 12.5 thou/uL (4.0-11.0)
[2021-04-08 21:17] LABS: CALCIUM 9.4 mg/dL (8.5-10.1); CREATININE 0.8 mg/dL (0.6-1.0); POTASSIUM 3.8 mmol/L (3.5-5.1)
[2021-04-08 21:23] LABS: TOTAL BILIRUBIN 0.6 mg/dL (0.2-1.0); TOTAL PROTEIN 8.9 g/dL (6.4-8.2)
[2021-04-08 21:45] LABS: URINE BILIRUBIN NEGATIVE (Negative); URINE BLOOD NEGATIVE (Negative); URINE CLARITY CLEAR; URINE COLOR YELLOW; URINE GLUCOSE-RANDOM* NEGATIVE (Negative); URINE KETONES NEGATIVE (Negative); URINE LEUKOCYTES-REFLEX NEGATIVE (Negative); URINE NITRITE-REFLEX NEGATIVE (Negative); URINE PROTEIN (DIPSTICK) NEGATIVE (Negative); URINE SPECIFIC GRAVITY >= 1.030 (1.005-1.035); URINE UROBILINOGEN 0.2 E.U./dl (0.2-1.0)
[2021-04-08] MEDS ORDERED: DOXYCYCLINE 10100 MG PO (22:37)
[2021-04-08 23:40] VITALS: BP 139/68
[2021-04-09 02:29] LABS: HYPOCHROMASIA 3+; MICROCYTES 3+; OVALOCYTES 1+; POIKILOCYTOSIS 2+; TARGET CELLS FEW; TEARDROPS FEW
[2021-04-09 02:30] LABS: ANISOCYTOSIS 2+
--- NOTE | 2021-04-09 07:27 | EKG ---
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 : 1990 Requested By: Khanh Fisher Order Number: [id number] MD: Hernando Gregorio Measurements Intervals [place] Rate: 103 P: 48 NV: 146 QRS: 5 QRSD: 100 T: 14 QT: 349 QTc: 457 Interpretive Statements Sinus tachycardia Compared to ECG 04/24/2019 14:08:58 Poor R-wave progression no longer present Electronically Signed On 04-09-2021 7:27:06 COMPUTER SYSTEM VALIDATION SPECIALIST by Hernando Gregorio [email or web address] <ELECTRONICALLY SIGNED> By: Hernando Gregorio MD, [facility] 04/09/21 0727 [id number] Hernando Gregorio MD, FACC /EPI
== END 2021-04-08 23:44 | disposition home or self-care (01) ==
LOC: ER 20:44
PROVIDERS: Emergency Medicine
DX: J18.9 Pneumonia, unspecified organism (principal); Z20.822 Contact with and (suspected) exposure to COVID-19; I10 Essential (primary) hypertension; J45.909 Unspecified asthma, uncomplicated; Z98.890 Other specified postprocedural states; Z90.49 Acquired absence of other specified parts of digestive tract; Z79.51 Long term (current) use of inhaled steroids; Z79.899 Other long term (current) drug therapy; Z88.2 Allergy status to sulfonamides